=== PATIENT | male | born 1970 | race Caucasian/White ===

== ENCOUNTER 2017-10-01 03:57 | Observation (INO) | payer SELFPAY ==
[~2017-10-01] VITALS: Ht 175.3 cm; Wt 75.0 kg
[2017-10-01] VITALS (10 sets, daily range): BP systolic 106–128; BP diastolic 52–78; PULSE 60–85; RESP 15–20; TEMP 97.5–98; O2SAT 95–98
[2017-10-01] MEDS ORDERED: SODIUM CHLORIDE 0.9% FLUSH 10 ML FLUSH IVF PRN (04:15)
[2017-10-01] MEDS ORDERED: ASPIRIN 81 MG CHEW TAB PO ONE (04:15)
[2017-10-01] MEDS ORDERED: SODIUM CHLORID 0.9% 500 ML INJ 500 ML IV ONE (04:15)
[2017-10-01] MEDS: NITROGLYCERIN 0.4 MG SL 25 TABS/BTL SL SCH ×3 (04:20→05:29)
--- NOTE | 2017-10-01 04:41 | RADRPT ---
EXAM DATE: 10/01/2017 4:34 AM EDT AGE/SEX: 46 years / Male INDICATIONS: Chest pain, shortness of breath. CLINICAL DATA: This is the patient's initial encounter. Patient reports that signs and symptoms have been present for 1 day and indicates a pain score of 5/10. MEDICAL/SURGICAL HISTORY: . Smoker. None. COMPARISON: No prior exams available for comparison. FINDINGS: The lungs are clear without infiltrate, nodule, or mass. There is no appreciable pleural effusion for technique. Heart and mediastinum are unremarkable. CONCLUSION: No acute cardiopulmonary disease. Electronically signed by: Дмитрий Harden MD 10/01/2017 4:40 AM EDT
[2017-10-01 04:57] LABS: AUTOMATED NEUTROPHIL # 4.3 TH/MM3 (1.8-7.7); BASOPHIL # 0.2 TH/MM3 (0-0.2); BASOPHIL % 2.5 % (0.0-2.0); EOSINOPHIL # 0.3 TH/MM3 (0-0.4); EOSINOPHIL % 4.2 % (0.0-4.0); HEMATOCRIT 41.3 % (39.0-51.0); HEMOGLOBIN 14.3 GM/DL (13.0-17.0); LYMPH % 25.5 % (9.0-44.0); LYMPHOCYTE # 1.9 TH/MM3 (1.0-4.8); MEAN CELL VOLUME 91.9 FL (80.0-100.0); MEAN CORPUSCULAR HEMOGLOBIN 31.8 PG (27.0-34.0); MEAN CORPUSCULAR HGB CONC 34.6 % (32.0-36.0); MEAN PLATELET VOLUME 8.1 FL (7.0-11.0); MONOCYTE # 0.7 TH/MM3 (0-0.9); NEUT % 58.8 % (16.0-70.0); PLATELET COUNT 325 TH/MM3 (150-450); RED BLOOD COUNT 4.49 MIL/MM3 (4.50-5.90); RED CELL DISTRIBUTION WIDTH 14.1 % (11.6-17.2); WHITE BLOOD COUNT 7.3 TH/MM3 (4.0-11.0)
[2017-10-01 05:04] LABS: PROTHROMBIN TIME - PATIENT 10.4 SEC (9.8-11.6)
[2017-10-01 05:10] LABS: BICARBONATE 23.9 MEQ/L (21.0-32.0); BLOOD UREA NITROGEN 9 MG/DL (7-18); CALCIUM 9.2 MG/DL (8.5-10.1); CHLORIDE 105 MEQ/L (98-107); CREATININE 0.79 MG/DL (0.60-1.30); GLOMERULAR FILTRATION RATE 105 ML/MIN (>89); GLUCOSE,RANDOM 78 MG/DL (74-106); SODIUM (NA) 140 MEQ/L (136-145)
[2017-10-01 05:15] LABS: D-DIMER 0.44 MG/L FEU (0.00-0.50); TROPONIN I LESS THAN 0.02 NG/ML (0.02-0.05)
[2017-10-01] MEDS ORDERED: KETOROLAC TROMETHAMINE 30 MG/ML (IVP) VIAL IV PUSH ONE (06:00)
[2017-10-01] MEDS ORDERED: METOCLOPRAMIDE HCL 10 MG/2 ML VIAL IV PUSH ONE (06:30)
[2017-10-01] MEDS ORDERED: MORPHINE SULFATE 4 MG/ML INJ IV PUSH ONE (06:30)
[2017-10-01] MEDS ORDERED: MORPHINE SULFATE 2 MG/ML SYRINGE IV PUSH ONE (06:30)
--- NOTE | 2017-10-01 07:54 | EKG ---
Date Performed: 10/01/2017 Time Performed: 04:05:02 PTAGE: 46 years EKG: Sinus rhythm INCOMPLETE RIGHT BUNDLE BRANCH BLOCK BORDERLINE ECG NO PREVIOUS TRACING DOCTOR: Shane Fierro Interpretating Date/Time 10/01/2017 07:52:01
[2017-10-01] MEDS ORDERED: IOHEXOL 350 MG/ML 10 ML VIAL (for RAD DIAG) IVCONTRAST ONE (07:59)
--- NOTE | 2017-10-01 08:11 | RADRPT ---
EXAM DATE: 10/01/2017 7:57 AM EDT AGE/SEX: 46 years / Male INDICATIONS: Cephalgia. CLINICAL DATA: This is the patient's initial encounter. Patient reports that signs and symptoms have been present for 3 days and indicates a pain score of 2/10. MEDICAL/SURGICAL HISTORY: None. None. RADIATION DOSE: 56.35 CTDI (mGy) COMPARISON: No prior [facility] exams available for comparison. TECHNIQUE: CT of the head without contrast. Using automated exposure control and adjustment of the mA and/or kV according to patient size, radiation dose was kept as low as reasonably achievable to ob tain optimal diagnostic quality images. FINDINGS: Cerebrum: The ventricles are normal for age. No evidence of midline shift, mass lesion, hemorrhage or acute infarction. No extraaxial fluid collections are seen. Posterior Fossa: The cerebellum and brainstem are intact. The 4th ventricle is midline. The cerebe llopontine angle is unremarkable. Extracranial: The visualized portion of the orbits is intact. Mucus retention cyst right maxillary s inus. Skull: The calvaria is intact. No evidence of skull fracture. CONCLUSION: 1. No acute intracranial abnormality. 2. Mucous retention cyst right maxillary sinus Electronically signed by: Arsenio Dorado MD 10/01/2017 8:09 AM EDT
--- NOTE | 2017-10-01 08:14 | RADRPT ---
EXAM DATE: 10/01/2017 8:01 AM EDT AGE/SEX: 46 years / Male INDICATIONS: Chest pain. CLINICAL DATA: This is the patient's initial encounter. Patient reports that signs and symptoms have been present for 3 days and indicates a pain score of 3/10. MEDICAL/SURGICAL HISTORY: None. None. RADIATION DOSE: 9.27 CTDI (mGy) COMPARISON: No prior [facility] exams available for comparison. TECHNIQUE: Volumetric scanning was performed using a multi-row detector CT scanner during bolus infu chi of 60 ml Omnipaque 350 (iohexol) nonionic water-soluble contrast as a single exam dose. The lorena a was post processed with a variety of visualization algorithms including full volume maximum intensi ty projection and sliding thin slab reformation. Using automated exposure control and adjustment of the mA and/or kV according to patient size, radiation dose was kept as low as reasonably achievable t o obtain optimal diagnostic quality images. FINDINGS: Pulmonary Arteries: No filling defects are seen in the pulmonary arteries out to the subsegmental ve ssels. The left and right pulmonary arteries are normal in diameter. Lung: No infiltrates seen. Effusion: None. Mediastinum: No evidence of mediastinal or hilar adenopathy. Other: The axilla is unremarkable. CONCLUSION: 1. No evidence for pulmonary embolism. 2. No infiltrate. Electronically signed by: Arsenio Dorado MD 10/01/2017 8:13 AM EDT
--- NOTE | 2017-10-01 08:16 | PD ---
HPI Chief Complaint: Chest Pain Time Seen by Provider: 04:12 Travel History International Travel<30 days: No Contact w/Intl Traveler<30days: No Traveled to known affect area: No History of Present Illness HPI 46-year-old male presents to the emergency department by private transportation for complaint of left-sided chest pain with radiation to the arms 3 days. Patient is also had severe posterior head pain but has had the head pain in the past. Patient denies any injury or fall. Patient denies any known medical problems. Patient admits to tobacco use. Patient has not had any type of cardiac evaluation in the past. Patient rates his pain 9/10 in intensity. Patient is taken no medications for her symptoms. Patient's had no fever no chills no cough no congestion no hemoptysis no lower extremity pain or swelling no long-distance travel no protracted bedrest no surgical procedure. Patient has no known personal history or family history of premature onset heart disease or clotting disorder. Patient is unable to identify exacerbating or alleviating factors. Patient's had no nausea no vomiting no sweats but has had shortness of breath and pleuritic chest pain. Patient denies any trauma or injury. [facility] Past Medical History Narrative Medical Negative past medical history negative surgical history positive tobacco use positive alcohol use; nursing notes reviewed Medical History: Denies Significant Hx Past Surgical History Surgical History: No Previous Surgery Social History Alcohol Use: Yes (occassional) Tobacco Use: Yes (1-2 ppd) Substance Use: No Allergies-Medications (Allergen,Severity, Reaction): Coded Allergies: No Known Allergies (Unverified , 10/01/17) Reported Meds & Prescriptions Reported Meds & Active Scripts Active No Active Prescriptions or Reported Medications Review of Systems Except as stated in HPI: all other systems reviewed are Neg Physical Exam Narrative GENERAL: Well-developed well-nourished male no acute distress no respiratory distress; GCS 15 SKIN: Warm and dry. HEAD: Normocephalic. EYES: No scleral icterus. No injection or drainage. NECK: Supple, trachea midline. No JVD or lymphadenopathy. CARDIOVASCULAR: Regular rate and rhythm without murmurs, gallops, or rubs. RESPIRATORY: Breath sounds equal bilaterally. No accessory muscle use. GASTROINTESTINAL: Abdomen soft, non-tender, nondistended. MUSCULOSKELETAL: No cyanosis, or edema. BACK: Nontender without obvious deformity. No CVA tenderness. Data Data Last Documented VS Vital Signs Date Time Temp Pulse Resp B/P (MAP) Pulse Ox O2 Delivery O2 Flow Rate FiO2 10/01/17 07:51 65 15 113/64 (80) 96 Room Air 10/01/17 04:04 98.0 Orders Orders Electrocardiogram (10/01/17 04:12) Basic Metabolic Panel (Bmp) (10/01/17 04:12) Ckmb (Isoenzyme) Profile (10/01/17 04:12) Complete Blood Count With Diff (10/01/17 04:12) D-Dimer (10/01/17 04:12) Magnesium (Mg) (10/01/17 04:12) Prothrombin Time / Inr (Pt) (10/01/17 04:12) Act Partial Throm Time (Ptt) (10/01/17 04:12) Troponin I (10/01/17 04:12) Ecg Monitoring (10/01/17 04:12) Bilateral Bp Monitoring (10/01/17 04:12) Iv Access Insert/Monitor (10/01/17 04:12) Oximetry (10/01/17 04:12) Oxygen Administration (10/01/17 04:12) Aspirin Chew (Aspirin Chew) (10/01/17 04:15) Sodium Chloride 0.9% Flush (Ns Flush) (10/01/17 04:15) Nitroglycerin Sl (Nitrostat Sl) (10/01/17 04:15) Chest, Single Ap (10/01/17 ) Sodium Chlorid 0.9% 500 Ml Inj (Ns 500 M (10/01/17 04:15) CKMB (10/01/17 04:29) CKMB% (10/01/17 04:29) Ct Brain W/O Iv Contrast(Rout) (10/01/17 ) Ketorolac Inj (Toradol Inj) (10/01/17 06:00) Ct Pulmonary Angiogram (10/01/17 ) Metoclopramide Inj (Reglan Inj) (10/01/17 06:30) Morphine Inj (Morphine Inj) (10/01/17 06:30) Morphine Inj (Morphine Inj) (10/01/17 06:30) Iohexol 350 Inj (Omnipaque 350 Inj) (10/01/17 07:59) Admit Order (Ed Use Only) (10/01/17 ) Digital Asset Coordinator / Telemetry [email or web address] (10/01/17 08:19) Diet Heart Healthy (10/01/17 Breakfast) Activity Oob With Assistance (10/01/17 08:19) Notify Dr: Other (10/01/17 08:19) Activity Bed Rest With Brp (10/01/17 08:19) Vital Signs (Adult) Q4H (10/01/17 08:19) Cardiac Rhythm .As Directed (10/01/17 08:19) Notify Dr: Other .PRN (10/01/17 08:19) Notify DrBryant Parameters (10/01/17 08:19) Resp Oxygen Nasal Cannula (10/01/17 ) Ckmb (Isoenzyme) Profile (10/01/17 08:19) Ckmb (Isoenzyme) Profile (10/01/17 11:19) Troponin I (10/01/17 08:19) Troponin I (10/01/17 11:19) Electrocardiogram (10/01/17 08:19) Electrocardiogram (10/01/17 11:19) ^ Obtain (10/01/17 08:19) Sodium Chloride 0.9% Flush (Ns Flush) (10/01/17 08:30) Sodium Chloride 0.9% Flush (Ns Flush) (10/01/17 09:00) Nitroglycerin Sl (Nitrostat Sl) (10/01/17 08:30) Aspirin (Aspirin) (10/01/17 09:00) Alprazolam (Xanax) (10/01/17 08:30) Digital Asset Coordinator / Telemetry [email or web address].[email or web address] (10/01/17 08:19) Labs Laboratory Tests Test 10/01/17 04:29 White Blood Count 7.3 TH/MM3 Red Blood Count 4.49 MIL/MM3 Hemoglobin 14.3 GM/DL Hematocrit 41.3 % Mean Corpuscular Volume 91.9 FL Mean Corpuscular Hemoglobin 31.8 PG Mean Corpuscular Hemoglobin Concent 34.6 % Red Cell Distribution Width 14.1 % Platelet Count 325 TH/MM3 Mean Platelet Volume 8.1 FL Neutrophils (%) (Auto) 58.8 % Lymphocytes (%) (Auto) 25.5 % Monocytes (%) (Auto) 9.0 % Eosinophils (%) (Auto) 4.2 % Basophils (%) (Auto) 2.5 % Neutrophils # (Auto) 4.3 TH/MM3 Lymphocytes # (Auto) 1.9 TH/MM3 Monocytes # (Auto) 0.7 TH/MM3 Eosinophils # (Auto) 0.3 TH/MM3 Basophils # (Auto) 0.2 TH/MM3 CBC Comment DIFF FINAL Differential Comment Prothrombin Time 10.4 SEC Prothromb Time International Ratio 1.0 RATIO Activated Partial Thromboplast Time 28.9 SEC D-Dimer Quantitative (PE/DVT) 0.44 MG/L FEU Blood Urea Nitrogen 9 MG/DL Creatinine 0.79 MG/DL Random Glucose 78 MG/DL Calcium Level 9.2 MG/DL Magnesium Level 2.0 MG/DL Sodium Level 140 MEQ/L Potassium Level 3.7 MEQ/L Chloride Level 105 MEQ/L Carbon Dioxide Level 23.9 MEQ/L Anion Gap 11 MEQ/L Estimat Glomerular Filtration Rate 105 ML/MIN Total Creatine Kinase 103 U/L Creatine Kinase MB 0.8 NG/ML Troponin I LESS THAN 0.02 NG/ML MDM Medical Decision Making Medical Screen Exam Complete: Yes Emergency Medical Condition: Yes Medical Record Reviewed: Yes Interpretation(s) CBC & BMP Diagram 10/01/17 04:29 Calcium Level 9.2, Magnesium Level 2.0 Vital Signs Date Time Temp Pulse Resp B/P (MAP) Pulse Ox O2 Delivery O2 Flow Rate FiO2 10/01/17 07:51 65 15 113/64 (80) 96 Room Air 10/01/17 06:32 74 16 119/78 (92) 96 Room Air 10/01/17 05:32 76 18 119/75 (90) 95 10/01/17 05:13 71 18 128/75 (92) 98 Room Air 10/01/17 04:13 97 Room Air 10/01/17 04:13 18 97 Room Air 10/01/17 04:13 82 18 122/78 (93) 95 Room Air 10/01/17 04:04 98.0 85 20 118/72 (87) 96 EKG: Normal sinus rhythm incomplete right bundle branch block no acute ST elevation injury pattern or ectopy noted Last Impressions Head CT 10/01/17 0000 Signed Impressions: CONCLUSION: 1. No acute intracranial abnormality. 2. Mucous retention cyst right maxillary sinus Chest X-Ray 10/01/17 0000 Signed Impressions: CONCLUSION: No acute cardiopulmonary disease. CT Angiography 10/01/17 0000 Signed Impressions: CONCLUSION: 1. No evidence for pulmonary embolism. 2. No infiltrate. Troponin I: Less than 0.02; CK is 103 these values are not elevated Differential Diagnosis Chest pain, atypical chest pain, ACS, IA, arrhythmia, dissection, PE, atypical headache, migraine, cluster headache, tension headache, ICH Narrative Course Patient placed on patient monitor IV access obtained specimens collected and sent for resulting patient given sublingual nitroglycerin per protocol as well as aspirin 162 mg to chew Patient complains of severe headache but states he has had this headache before therefore given Toradol 30 mg IV Lab values are found to be in normal range including a d-dimer which is 0.44 however complained of sharp pleuritic chest pain with shortness of breath will proceed with CT pulmonary angiogram in view of complaint of headache will obtain CT noncontrast prior to contrast study. Plan will be to admit patient to chest pain center if imaging studies are unremarkable. CT pony under [place] is negative for PE CT brain noncontrast is negative for acute process Patient will be admitted for observation to chest pain center per protocol Physician Communication Physician Communication admit to [facility] per protocol Diagnosis Primary Impression: Chest pain Admitting Information Admitting Physician Requests: Observation Scripts No Active Prescriptions or Reported Meds Misty Scott MD October 01, 2017 08:16
[2017-10-01] MEDS ORDERED: NITROGLYCERIN 0.4 MG SL 25 TABS/BTL SL PRN (08:30)
[2017-10-01] MEDS ORDERED: ALPRAZolam 0.25 MG TAB PO PRN (08:30)
[2017-10-01] MEDS ORDERED: SODIUM CHLORIDE 0.9% FLUSH 10 ML FLUSH IV FLUSH PRN ×2 (08:30→09:00)
[2017-10-01] MEDS ORDERED: ACETAMINOPHEN 500 MG CPLT PO PRN (09:00)
[2017-10-01] MEDS ORDERED: ONDANSETRON ODT 4 MG TAB PO PRN (09:00)
[2017-10-01] MEDS ORDERED: SODIUM CHLORIDE 0.9% FLUSH 10 ML FLUSH IV FLUSH SCH ×2 (09:00)
[2017-10-01] MEDS ORDERED: ASPIRIN 325 MG TAB PO SCH (09:00)
[2017-10-01 09:46] LABS: TROPONIN I LESS THAN 0.02 NG/ML (0.02-0.05)
--- NOTE | 2017-10-01 10:21 | HHI.HP ---
HPI Primary Care Physician No Primary Care Physician Chief Complaint Chest pain History of Present Illness 46-year-old male 2 pack-a-day smoker presents emergency room for further evaluation of nonexertional chest pain. Onset 3 days, yesterday's episode becoming more severe therefore came the ER for further evaluation. Location substernal. Characterized as pressure. Severity 5/10. Radiation to right shoulder and arm, described as "tingling". Duration 3-5 minutes. Associated symptoms include dyspnea and diaphoresis. No nausea or vomiting. No known precipitating or relieving factors. States nitro "helped somewhat." Discomfort is never awoken him from sleep. Breathing seemed to "intensify the pain." Currently chest pain-free. Also reports x1 month "the top of my head hurting." Discomfort in head worse the last 2 days with radiation posterior neck. Discomfort in head has subsided. Review of Systems General: No fatigue, weakness, fever, chills, recent illness, or change in appetite. HEENT: No SAMAYOA, no vision changes, no nasal congestion or drainage, no dysphasia, or history of GERD. CV: As stated above. No current chest pain or pressure. RESP: No SOB, wheeze, or recent URI. GI: No nausea, vomiting, bowel changes, diarrhea, constipation, pain, distention , melena, or blood in the stool. : No dysuria, urgency, frequency, EXT: No lower leg edema, no paraesthesias MS: No discomfort, injury, trauma, or change in ROM NEURO: No difficulty with balance, LOC, or motor/sensory deficits PSYCH: No anxiety, depression, or suicidal ideation SKIN: No rashes, no concerning lesions Past Family Social History Allergies: Coded Allergies: No Known Allergies (Unverified , 10/01/17) Past Medical History None Past Surgical History None Reported Medications Reported Meds & Active Scripts Active No Active Prescriptions or Reported Medications Active Ordered Medications Current Medications Medications (Trade) Dose Ordered Sig/Rickie Route Start Time Stop Time Status Last Admin (Nitrostat Sl) 0.4 mg Q5M PRN SL 10/01/17 08:30 (Aspirin) 325 mg DAILY PO 10/01/17 09:00 (Xanax) 0.25 mg Q8H PRN PO 10/01/17 08:30 (NS Flush) 2 ml UNSCH PRN IV FLUSH 10/01/17 09:00 (NS Flush) 2 ml BID IV FLUSH 10/01/17 09:00 (Tylenol) 500 mg Q4H PRN PO 10/01/17 09:00 (Zofran Odt) 4 mg Q6H PRN PO 10/01/17 09:00 Family History Positive for cardiovascular disease. Mother heart disease, including IA, CABGx3 requiring subsequent cardiac stents. Social History No known hypertension, hyperlipidemia, or diabetes. Patient does not regularly see medical providers. Current 2 pack a day smoker. Endorses daily alcohol of "at least 2 beers, often more." Denies any illegal drug use. Endorses active lifestyle works as a information technology project manager, he is self-employed3 Past cardiac testing No past cardiac testing. Physical Exam Vital Signs Vital Signs Date Time Temp Pulse Resp B/P (MAP) Pulse Ox O2 Delivery O2 Flow Rate FiO2 10/01/17 08:49 96 21 10/01/17 07:51 65 15 113/64 (80) 96 Room Air 10/01/17 06:32 74 16 119/78 (92) 96 Room Air 10/01/17 05:32 76 18 119/75 (90) 95 10/01/17 05:13 71 18 128/75 (92) 98 Room Air 10/01/17 04:13 97 Room Air 10/01/17 04:13 18 97 Room Air 10/01/17 04:13 82 18 122/78 (93) 95 Room Air 10/01/17 04:04 98.0 85 20 118/72 (87) 96 Physical Exam GENERAL: Alert WN, WD, NAD, male HEAD: NC, AT EYES: Sclera injected,EOMI, pupils equal and round ENT: Mucous membranes pink and moist, no nasal discharge or bleeding, no lesions NECK: Supple, no masses, trachea midline CV: RRR, without murmur, rub, gallop, no JVD, S1-S2 no S3-S4. No carotid bruits. RESP: Decreased lungs throughout bilateral, no crackles, wheeze, or rhonchi, symmetrical chest rise, nonlabored, able to speak in full sentences ABD: Soft, NT, ND, no masses, positive bowel tones EXT: Pulses +2x4, no dependent edema MS: Normal tone x4 extremities, no obvious deformities, full range of motion NEURO: CN II through CN XII grossly intact, motor strength 5/5 PSYCH: A+O x3, flat affect, appropriate speech, mood, insight and judgment SKIN: Solar damage, multiple tattoos, normal turgor, normal texture, no lesions , no rashes Laboratory Laboratory Tests Test 10/01/17 04:29 10/01/17 08:55 White Blood Count 7.3 Red Blood Count 4.49 Hemoglobin 14.3 Hematocrit 41.3 Mean Corpuscular Volume 91.9 Mean Corpuscular Hemoglobin 31.8 Mean Corpuscular Hemoglobin Concent 34.6 Red Cell Distribution Width 14.1 Platelet Count 325 Mean Platelet Volume 8.1 Neutrophils (%) (Auto) 58.8 Lymphocytes (%) (Auto) 25.5 Monocytes (%) (Auto) 9.0 Eosinophils (%) (Auto) 4.2 Basophils (%) (Auto) 2.5 Neutrophils # (Auto) 4.3 Lymphocytes # (Auto) 1.9 Monocytes # (Auto) 0.7 Eosinophils # (Auto) 0.3 Basophils # (Auto) 0.2 CBC Comment DIFF FINAL Differential Comment Prothrombin Time 10.4 Prothromb Time International Ratio 1.0 Activated Partial Thromboplast Time 28.9 D-Dimer Quantitative (PE/DVT) 0.44 Blood Urea Nitrogen 9 Creatinine 0.79 Random Glucose 78 Calcium Level 9.2 Magnesium Level 2.0 Sodium Level 140 Potassium Level 3.7 Chloride Level 105 Carbon Dioxide Level 23.9 Anion Gap 11 Estimat Glomerular Filtration Rate 105 Total Creatine Kinase 103 82 Creatine Kinase MB 0.8 Troponin I LESS THAN 0.02 LESS THAN 0.02 Result Diagram: 10/01/17 0429 10/01/179 Imaging Last [address] 10/01/17 0000 Signed Impressions: CONCLUSION: 1. No acute intracranial abnormality. 2. Mucous retention cyst right maxillary sinus Chest X-Ray 10/01/17 0000 Signed Impressions: CONCLUSION: No acute cardiopulmonary disease. CT Angiography 10/01/17 0000 Signed Impressions: CONCLUSION: 1. No evidence for pulmonary embolism. 2. No infiltrate. Course EKG NSR, no st t segment changes Caprini VTE Risk Assessment Caprini VTE Risk Assessment: No/Low Risk (score <= 1) Caprini Risk Assessment Model Point Value = 1 Point Value = 2 Point Value = 3 Point Value = 5 Age 41-60 Minor surgery BMI > 25 kg/m2 Swollen legs Varicose veins or History of unexplained or recurrent spontaneous Oral contraceptives or hormone replacement Sepsis (< 1 month) Serious lung disease, including pneumonia (< 1 month) Abnormal pulmonary function Acute myocardial infarction Congestive heart failure (< 1 month) History of inflammatory bowel disease Medical patient at bed rest Age 61-74 Arthroscopic surgery Major open surgery (> 45 min) Laparoscopic surgery (> 45 min) Malignancy Confined to bed (> 72 hours) Immobilizing plaster cast Central venous access Age >= 75 History of VTE Family history of VTE Factor V Leiden Prothrombin [id number] Lupus anticoagulant Anticardiolipin antibodies Elevated serum homocysteine Heparin-induced thrombocytopenia Other congenital or acquired thrombophilia Stroke (< 1 month) Elective arthroplasty Hip, pelvis, or leg fracture Acute spinal cord injury (< 1 month) Prophylaxis Regimen Total Risk Factor Score Risk Level Prophylaxis Regimen 0-1 Low Early ambulation 2 Moderate Order ONE of the following: *Sequential Compression Device (SCD) *Heparin 5000 units SQ BID 3-4 Higher Order ONE of the following medications: *Heparin 5000 units SQ TID *Enoxaparin/Lovenox 40 mg SQ daily (WT < 150 kg, CrCl > 30 mL/min) *Enoxaparin/Lovenox 30 mg SQ daily (WT < 150 kg, CrCl > 10-29 mL/min) *Enoxaparin/Lovenox 30 mg SQ BID (WT < 150 kg, CrCl > 30 mL/min) AND/OR *Sequential Compression Device (SCD) 5 or more Highest Order ONE of the following medications: *Heparin 5000 units SQ TID (Preferred with Epidurals) *Enoxaparin/Lovenox 40 mg SQ daily (WT < 150 kg, CrCl > 30 mL/min) *Enoxaparin/Lovenox 30 mg SQ daily (WT < 150 kg, CrCl > 10-29 mL/min) *Enoxaparin/Lovenox 30 mg SQ BID (WT < 150 kg, CrCl > 30 mL/min) AND *Sequential Compression Device (SCD) Assessment and Plan Assessment and Plan #1 Chest pain-no chest pain center. Rule out with 2 sets of EKGs and cardiac enzymes. Seen and evaluated by Dr. Dakota Flores. Discomfort concerning for cardiac etiology. Proceed with chemical stress test this morning. Encouraged obtaining primary care provider for baseline laboratory studies including lipid panel anteriorly checkups. #2 Tobacco use-strongly encouraged and stressed importance of tobacco cessation. Instructed to quit smoking. Tara Little October 01, 2017 10:21
--- NOTE | 2017-10-01 10:26 | PD.CARD.PN ---
Subjective Subjective Remarks The patient was seen and examined together with nurse practitioner. He is been having episodes of chest pain over the last 3 days having had 4 or 5 episodes in that time. This is mid chest pain lasting about 5 minutes he rates it as 5 out of 10 somewhat sharp but also pressure-like and worse with deep breathing. Also has radiated to his left arm with some finger tingling. He has had associated shortness of breath and some diaphoresis but no nausea or vomiting. He cannot associate any precipitating or relieving factors other than the fact that when he was given nitroglycerin on arrival did make the pain go away. He also complains of some posterior head pain but this is been going on for the last month or so. He has a positive family history and is a smoker. Otherwise history is as documented Objective Medications Current Medications Medications (Trade) Dose Ordered Sig/Rickie Route Start Time Stop Time Status Last Admin (Nitrostat Sl) 0.4 mg Q5M PRN SL 10/01/17 08:30 (Aspirin) 325 mg DAILY PO 10/01/17 09:00 (Xanax) 0.25 mg Q8H PRN PO 10/01/17 08:30 (NS Flush) 2 ml UNSCH PRN IV FLUSH 10/01/17 09:00 (NS Flush) 2 ml BID IV FLUSH 10/01/17 09:00 (Tylenol) 500 mg Q4H PRN PO 10/01/17 09:00 (Zofran Odt) 4 mg Q6H PRN PO 10/01/17 09:00 Vital Signs / I&O Vital Signs Date Time Temp Pulse Resp B/P (MAP) Pulse Ox O2 Delivery O2 Flow Rate FiO2 10/01/17 08:49 96 21 10/01/17 07:51 65 15 113/64 (80) 96 Room Air 10/01/17 06:32 74 16 119/78 (92) 96 Room Air 10/01/17 05:32 76 18 119/75 (90) 95 10/01/17 05:13 71 18 128/75 (92) 98 Room Air 10/01/17 04:13 97 Room Air 10/01/17 04:13 18 97 Room Air 10/01/17 04:13 82 18 122/78 (93) 95 Room Air 10/01/17 04:04 98.0 85 20 118/72 (87) 96 I/O 09/30/17 09/30/17 09/30/17 10/01/17 10/01/17 10/01/17 07:00 15:00 23:00 07:00 15:00 23:00 Intake Total 500 ml Balance 500 ml Intake IV Total 500 ml Physical Exam Well-nourished well-developed but somewhat sleepy man who is fairly heavily tattooed and shows extensive actinic change. Neck supple no JVD masses nodes or bruits. Right sternoclavicular joint seems to be somewhat enlarged but he denies trauma Chest shows diminished breath sounds but no rales wheezes or rhonchi Cardiovascular PMI is not displaced there is a regular rhythm no gallops rubs or murmurs Abdomen soft nontender no guarding rebound no hepatosplenomegaly Extremities no clubbing cyanosis edema Laboratory Laboratory Tests Test 10/01/17 04:29 10/01/17 08:55 White Blood Count 7.3 TH/MM3 Red Blood Count 4.49 MIL/MM3 Hemoglobin 14.3 GM/DL Hematocrit 41.3 % Mean Corpuscular Volume 91.9 FL Mean Corpuscular Hemoglobin 31.8 PG Mean Corpuscular Hemoglobin Concent 34.6 % Red Cell Distribution Width 14.1 % Platelet Count 325 TH/MM3 Mean Platelet Volume 8.1 FL Neutrophils (%) (Auto) 58.8 % Lymphocytes (%) (Auto) 25.5 % Monocytes (%) (Auto) 9.0 % Eosinophils (%) (Auto) 4.2 % Basophils (%) (Auto) 2.5 % Neutrophils # (Auto) 4.3 TH/MM3 Lymphocytes # (Auto) 1.9 TH/MM3 Monocytes # (Auto) 0.7 TH/MM3 Eosinophils # (Auto) 0.3 TH/MM3 Basophils # (Auto) 0.2 TH/MM3 CBC Comment DIFF FINAL Differential Comment Prothrombin Time 10.4 SEC Prothromb Time International Ratio 1.0 RATIO Activated Partial Thromboplast Time 28.9 SEC D-Dimer Quantitative (PE/DVT) 0.44 MG/L FEU Blood Urea Nitrogen 9 MG/DL Creatinine 0.79 MG/DL Random Glucose 78 MG/DL Calcium Level 9.2 MG/DL Magnesium Level 2.0 MG/DL Sodium Level 140 MEQ/L Potassium Level 3.7 MEQ/L Chloride Level 105 MEQ/L Carbon Dioxide Level 23.9 MEQ/L Anion Gap 11 MEQ/L Estimat Glomerular Filtration Rate 105 ML/MIN Total Creatine Kinase 103 U/L 82 U/L Creatine Kinase MB 0.8 NG/ML Troponin I LESS THAN 0.02 NG/ML LESS THAN 0.02 NG/ML Imaging Last [address] 10/01/17 Signed Impressions: CONCLUSION: 1. No acute intracranial abnormality. 2. Mucous retention cyst right maxillary sinus Chest X-Ray 10/01/17 Signed Impressions: CONCLUSION: No acute cardiopulmonary disease. CT Angiography 10/01/17 Signed Impressions: CONCLUSION: 1. No evidence for pulmonary embolism. 2. No infiltrate. Assessment and Plan Assessment and Plan Patient has a good story for ischemic heart disease and does have risk factors for both tobacco and strong family history. We will rule out using POUND ATTENDANT protocol and then obtain nuclear stress test for definitive evaluation. Results are pending Code Status Full code Discussed Condition With Discussed the course and plan with the patient Dakota Flores MD October 01, 2017 10:26
[2017-10-01] MEDS ORDERED: REGADENOSON INJ 0.4 MG/5 ML SYR ONE (11:35)
--- NOTE | 2017-10-01 14:51 | EKG ---
Date Performed: 10/01/2017 Time Performed: 08:57:20 PTAGE: 46 years EKG: Sinus rhythm WITH SINUS ARRHYTHMIA INCOMPLETE RIGHT BUNDLE BRANCH BLOCK BORDERLINE ECG No change PREVIOUS TRACING : 10/01/2017 04.05 DOCTOR: Dakota Flores Interpretating Date/Time 10/01/2017 14:49:19
--- NOTE | 2017-10-01 14:53 | TR ---
Date Performed: 10/01/2017 Time Performed: 11:44:08 DOCTOR: Dakota Flores DRUG LIST: CLINICAL HISTORY: REASON FOR TEST: CHEST PAIN REASON FOR ENDING: OBSERVATION: CONCLUSION: Lexiscan stress test was performed under standard four minute protocol. Radionuclide was injected one minute prior to ending the test. No electrocardiographic abormalities were present to suggest ischemia. Nuclear imaging and interpretation are pending. COMMENTS:
[2017-10-01 15:48] LABS: TROPONIN I LESS THAN 0.02 NG/ML (0.02-0.05)
--- NOTE | 2017-10-01 16:20 | RADRPT ---
EXAM DATE: 10/01/2017 3:36 PM EDT AGE/SEX: 46 years / Male INDICATIONS:Angina. . Left chest pain radiating to bilateral arms. CLINICAL DATA: This is the patient's initial encounter. Patient reports that signs and symptoms have been present for 3 days and indicates a pain score of 6/10. MEDICAL/SURGICAL HISTORY: . Smoker. None. COMPARISON: No prior [facility] exams available for comparison. DOSE: 27.3 mCi Tc 99m Myoview at stress 8.3 mCi [id number] at rest 0.4 mg Lexiscan STRESS SYMPTOMS: Chest pressure. EJECTION FRACTION: 55 % TECHNIQUE: The patient underwent pharmacologic stress with infusion of prescribed dose. Continuous ECG tracing was monitored during stress. Gated SPECT imaging was performed after stress and conventi onal SPECT imaging was performed at rest. The examination was performed on a SPECT/CT scanner, both attenuation and non-corrected datasets were reviewed. FINDINGS: Distribution: The maximum perfused segment at stress is in the lateral wall. Perfusion Study: The pattern of perfusion at stress is within normal limits. Gated Study: There are intact wall motion and wall thickening without hypokinetic or dyskinetic segm ents. The ejection fraction is calculated at 55%. RISK CATEGORY: Low (<1% Annual Motality Rate) CONCLUSION: 1. No significant reversibility to suggest ischemia. 2. Normal wall motion with ejection fraction 55%. Electronically signed by: Demarco Gutierres MD 10/01/2017 4:19 PM EDT
--- NOTE | 2017-10-01 16:23 | HHI.DCPOC ---
Discharge Care Plan Diagnosis: (1) Atypical chest pain (2) Tobacco abuse Goals to Promote Your Health * To prevent worsening of your condition and complications * To maintain your health at the optimal level Directions to Meet Your Goals Take your medications as prescribed Follow your dietary instruction Follow activity as directed Keep your appointments as scheduled Take your immunizations and boosters as scheduled If your symptoms worsen call your PCP, if no PCP go to Urgent Care Center or Emergency Room Smoking is Dangerous to Your Health. Avoid second hand smoke Call the 24-hour hour crisis hotline for domestic abuse at [facility] October 01, 2017 16:23
== END 2017-10-01 17:11 | disposition home or self-care (01) ==
LOC: NEPC 03:57 → NEDA 08:21 → NEPGCP 09:48
PROVIDERS: ADMIT Internal Medicine Cardiovascular Disease; ATTEND Internal Medicine Cardiovascular Disease
DX: R07.81 Pleurodynia (principal); R51 Headache; J34.1 Cyst and mucocele of nose and nasal sinus; I45.10 Unspecified right bundle-branch block; R06.02 Shortness of breath; F17.210 Nicotine dependence, cigarettes, uncomplicated; R20.2 Paresthesia of skin; R61 Generalized hyperhidrosis; Z82.49 Family history of ischemic heart disease and other diseases of the circulatory system
CPT/HCPCS: 70450; 71045; 71275; 78452; 80048; 82550; 82552; 83735; 84484; 85025; 85379; 85610; 85730; 93005; 93017; 96374; 96375; 99285; A9502; G0378; J1885; J2270; J2765; J2785; J7040; Q9967